=== PATIENT | female | born 1990 | race Asian ===

== ENCOUNTER 2024-06-21 23:40 | Emergency (ER) | payer OTHER ==
[~2024-06-21] VITALS: Ht 165.1 cm; Wt 58.0 kg
[2024-06-21 23:46] VITALS: O2SAT 100
[2024-06-22 00:41] LABS: CHLORIDE 103 mEq/L (98-107); POTASSIUM 3.6 mEq/L (3.5-5.1); SODIUM 138 mEq/L (136-145)
[2024-06-22 00:42] LABS: CARBON DIOXIDE 25 mEq/L (21-32)
[2024-06-22 00:43] LABS: CALCIUM 9.5 mg/dL (8.7-10.4)
[2024-06-22 00:47] LABS: CREATININE 0.7 mg/dL (0.6-1.0); GLUCOSE 112 mg/dL (70-105)
[2024-06-22 00:48] LABS: UREA NITROGEN BLOOD 12 mg/dL (9-23)
[2024-06-22 00:52] LABS: BASOPHILS % 0.2 % (0.0-2.0); EOSINOPHILS % 0.2 % (0.0-5.0); HEMATOCRIT. 41.4 % (36.0-48.0); LYMPHOCYTES % 16.3 % (20.0-50.0); MEAN CORPUSCULAR HEMOGLOBIN 31.7 pg (28.0-32.0); MEAN CORPUSCULAR HGB CONC 33.8 g/dL (31.0-37.0); MEAN CORPUSCULAR VOLUME 93.9 fL (81.0-99.0); MEAN PLATELET VOLUME 8.3 fl (7.4-10.4); MONOCYTES % 5.6 % (2.0-8.0); NEUTROPHILS % 77.7 % (40.0-76.0); PLATELET 289 x1000/uL (130-400); RED BLOOD CELL COUNT 4.41 mill/uL (4.2-5.4); RED CELL DISTRIBUTION WIDTH 12.8 % (11.6-14.6); WHITE BLOOD COUNT 9.8 x1000/uL (4.5-11.0)
[2024-06-22] MEDS: ACETAMINOPHEN 325MG TABLET PO ONE (02:20)
[2024-06-22] MEDS: ONDANSETRON 4MG ODT PO ONE (02:21)
[2024-06-22 02:22] LABS: CLARITY URINE CLEAR (CLEAR); COLOR URINE YELLOW (YELLOW); SPECIFIC GRAVITY URINE 1.022 (1.005-1.030)
[2024-06-22 02:23] LABS: GLUCOSE URINE NEGATIVE (NEGATIVE); KETONES URINE 2+ (NEGATIVE); LEUKOCYTE ESTERASE URINE NEGATIVE (NEGATIVE); NITRITE URINE NEGATIVE (NEGATIVE); OCCULT BLOOD URINE NEGATIVE (NEGATIVE); PH URINE 7.5 (4.5-8.0); PROTEIN URINE NEGATIVE (NEGATIVE); UROBILINOGEN URINE 0.2 E.U./dL (0.2-1.0)
[2024-06-22] MEDS ORDERED: AZIT250T12 MT (02:38)
[2024-06-22] MEDS ORDERED: TOPUD MT (02:38)
[2024-06-22] MEDS ORDERED: MECL-264 PO (02:38)
[2024-06-22] MEDS ORDERED: ONDA4TAB50 MT (02:38)
[2024-06-22 02:56] LABS: HCG SCREEN NEGATIVE
[2024-06-22 03:33] VITALS: BP 102/64; PULSE 64; RESP 20; TEMP 36.66960; O2SAT 98
== END 2024-06-22 03:37 | disposition home or self-care (01) ==
LOC: ER 23:40
DX: R42 Dizziness and giddiness (principal); J32.9 Chronic sinusitis, unspecified; Z20.822 Contact with and (suspected) exposure to COVID-19
CPT/HCPCS: 36415; 71045; 80048; 81003; 84703; 85025; 87070; 87426; 87430; 87804; 99284